=== PATIENT | female | born 1950 | race Caucasian/White ===

== ENCOUNTER → 2017-11-13 | Emergency (ER) | payer OTHER ==
[~2017-11-13] VITALS: Ht 152.4 cm; Wt 58.5 kg
[~2017-11-13] MED LIST: SYNTHROID50 MCG; ZOCOR20 MG
== END | disposition home or self-care (01) ==
LOC: ER 09:11
DX: J11.1 Influenza due to unidentified influenza virus with other respiratory manifestations (principal); B34.9 Viral infection, unspecified

== ENCOUNTER 2018-04-16 05:46 | Emergency (ER) | payer OTHER ==
[~2018-04-16] VITALS: Ht 152.4 cm; Wt 56.7 kg
[2018-04-16] MEDS ORDERED: ZOCOR40 MG (05:54)
[2018-04-16] MEDS ORDERED: ULTRACET PO (08:00)
== END 2018-04-16 08:10 | disposition home or self-care (01) ==
LOC: ER 05:46
DX: M25.511 Pain in right shoulder (principal)

== ENCOUNTER 2018-07-15 08:18 | Outpatient (CLI) | payer OTHER ==
[~2018-07-15 08:18] MED LIST changes: +ULTRACET PO; +ZOCOR40 MG
== END 2018-07-15 08:25 | disposition home or self-care (01) ==
LOC: SONOGRAMA 08:18
DX: M75.121 Complete rotator cuff tear or rupture of right shoulder, not specified as traumatic (principal); M25.511 Pain in right shoulder

== ENCOUNTER → 2019-03-03 | Outpatient (CLI) | payer OTHER | END | disposition home or self-care (01) | LOC: SONOGRAMA 07:21 | DX: M06.4 Inflammatory polyarthropathy (principal) ==

== ENCOUNTER 2019-05-26 09:32 | Outpatient (CLI) | payer OTHER | END 2019-05-26 09:39 | disposition home or self-care (01) | LOC: MAMO-SONO 09:32 | DX: Z12.31 Encounter for screening mammogram for malignant neoplasm of breast (principal); Z87.898 Personal history of other specified conditions ==

== ENCOUNTER 2019-06-01 09:26 | Outpatient (CLI) | payer OTHER | END 2019-06-01 09:29 | disposition home or self-care (01) | LOC: SONOGRAMA 09:26 → MAMO-SONO 10:15 | DX: R22.31 Localized swelling, mass and lump, right upper limb (principal) ==

== ENCOUNTER 2019-06-05 08:12 | Emergency (ER) | payer OTHER ==
[~2019-06-05] VITALS: Ht 152.4 cm; Wt 57.2 kg
[2019-06-05] MEDS ORDERED: SKELAXIN800 MG PO (11:20)
[2019-06-05] MEDS ORDERED: KETO10TA2 PO (11:20)
== END 2019-06-05 13:57 | disposition home or self-care (01) ==
LOC: ER 08:12
DX: S20.221S Contusion of right back wall of thorax, sequela (principal); R07.89 Other chest pain; W22.8XXS Striking against or struck by other objects, sequela

== ENCOUNTER 2019-06-08 04:18 | Emergency (ER) | payer OTHER ==
[~2019-06-08] VITALS: Ht 152.4 cm; Wt 58.1 kg
[~2019-06-08 04:18] MED LIST changes: +KETO10TA2 PO; +SKELAXIN800 MG PO
== END 2019-06-08 11:18 | disposition home or self-care (01) ==
LOC: ER 04:18
DX: G89.11 Acute pain due to trauma (principal); R07.89 Other chest pain; M54.6 Pain in thoracic spine; R06.02 Shortness of breath

== ENCOUNTER 2019-07-07 09:24 | Outpatient (CLI) | payer OTHER | END 2019-07-07 09:28 | disposition home or self-care (01) | LOC: SONOGRAMA 09:24 → MAMO-SONO 10:15 | DX: E03.8 Other specified hypothyroidism (principal); E04.2 Nontoxic multinodular goiter ==

== ENCOUNTER 2021-08-27 15:46 | Emergency (ER) | payer OTHER ==
[~2021-08-27] VITALS: Ht 152.4 cm; Wt 57.6 kg
[2021-08-27] MEDS ORDERED: NEURONTIN600 M1 (15:51)
== END 2021-08-27 17:38 | disposition home or self-care (01) ==
LOC: ER 15:46
DX: S61.522A Laceration with foreign body of left wrist, initial encounter (principal); W45.8XXA Other foreign body or object entering through skin, initial encounter; Y93.89 Activity, other specified; Y92.89 Other specified places as the place of occurrence of the external cause; Y99.8 Other external cause status

== ENCOUNTER 2021-09-02 08:30 | Emergency (ER) | payer OTHER ==
[~2021-09-02] VITALS: Ht 152.4 cm; Wt 57.2 kg
[~2021-09-02 08:30] MED LIST changes: +NEURONTIN600 M1
[2021-09-02] MEDS ORDERED: SYNTHROID75 MCG PO (08:36)
[2021-09-02] MEDS ORDERED: GRALISE600 MG PO (08:36)
== END 2021-09-02 09:56 | disposition home or self-care (01) ==
LOC: ER 08:30
DX: T81.33XA Disruption of traumatic injury wound repair, initial encounter (principal); Z48.02 Encounter for removal of sutures

== ENCOUNTER 2024-12-20 10:27 | Emergency (ER) | payer OTHER ==
[~2024-12-20] VITALS: Ht 152.4 cm; Wt 59.0 kg
[~2024-12-20 10:27] MED LIST changes: +GRALISE600 MG PO; +SYNTHROID75 MCG PO
[2024-12-20] MEDS ORDERED: KETOROLAC TROMETHAMINE 60 MG VIAL IM STA (11:45)
[2024-12-20] MEDS ORDERED: KETOROLAC TROMETHAMINE 60 MG VIAL IM ONE (12:05)
== END 2024-12-20 12:53 | disposition home or self-care (01) ==
LOC: ER 10:30
DX: S09.8XXA Other specified injuries of head, initial encounter (principal); W22.8XXA Striking against or struck by other objects, initial encounter; Y93.89 Activity, other specified; Y92.89 Other specified places as the place of occurrence of the external cause; E78.00 Pure hypercholesterolemia, unspecified; E03.8 Other specified hypothyroidism
CPT/HCPCS: 70450; 96372; 99284; J1885